=== PATIENT | male | born 1945 ===

== ENCOUNTER 2019-06-05 19:05 | Emergency (ER) | payer SELFPAY ==
[2019-06-05] MEDS ORDERED: NS 0.9% 1000 ML** 1,000 ML IV ONE (19:26)
[2019-06-05] MEDS ORDERED: Aspirin 81 mg CHEW TAB* 81 MG TAB.CHEW PO ONE ×2 (19:26→19:45)
[2019-06-05 19:28] VITALS: BP 154/77
--- NOTE | 2019-06-05 19:36 | UC ---
Cardiac HPI - HPI Summary HPI Summary: 73-year-old male comes in with chief complaint of right-sided chest pain. Started earlier today. Feels like a pressure. Also describes arrhythmias. French is the patient's second language and his son is interpreting for him which somewhat limits the interview. - History of Current Complaint Chief Complaint: UCChestPain Stated Complaint: HIGH BLOOD PRESSURE, CHEST DISCOMFORT Time Seen by Provider: 06/05/19 19:13 Pain Intensity: 4 - Allergy/Home Medications Allergies/Adverse Reactions: Allergies Allergy/AdvReac Type Severity Reaction Status Date / Time No Known Allergies Allergy Verified 06/05/19 19:29 Home Medications: Home Medications Aspirin [Adult Low Dose Aspirin EC] 100 mg PO 06/05/19 [History] Diazepam SYRINGE* [Valium SYRINGE*] 5 mg .SEE ORDER 06/05/19 [History] Furosemide [Lasix] 25 mg PO 06/05/19 [History] Olmesartan Medoxomil 40 mg PO 06/05/19 [History] Pantoprazole TAB * [Protonix TAB*] 40 mg PO DAILY 06/05/19 [History Confirmed ] Tamsulosin CAP* [Flomax CAP*] 0.4 mg PO DAILY 06/05/19 [History Confirmed ] PMH/Surg Hx/FS Hx/Imm Hx Previously Healthy: Yes Cardiovascular History: Hypertension GI/ History: Gastroesophageal Reflux - Surgical History Surgical History: None - Family History Known Family History: Positive: Non-Contributory - Social History Alcohol Use: Weekly Substance Use Type: None Smoking Status (MU): Never Smoked Tobacco Review of Systems All Other Systems Reviewed And Are Negative: Yes Constitutional: Positive: Other - SEE HPI Skin: Positive: Negative Eyes: Positive: Negative ENT: Positive: Negative Respiratory: Positive: Other - SEE HPI Cardiovascular: Positive: Chest Pain Gastrointestinal: Positive: Negative Genitourinary: Positive: Negative Motor: Positive: Negative Neurovascular: Positive: Negative Musculoskeletal: Positive: Negative Neurological: Positive: Negative Psychological: Positive: Negative Is Patient Immunocompromised?: No Physical Exam Triage Information Reviewed: Yes Appearance: No Pain Distress, Well-Nourished, Ill-Appearing - MILD Vital Signs: Initial Vital Signs Temp 99.2 F 06/05/19 19:13 Pulse 67 06/05/19 19:13 Resp 18 06/05/19 19:13 BP 154/77 06/05/19 19:13 Pulse Ox 97 06/05/19 19:13 Vital Signs Reviewed: Yes Eye Exam: Normal Eyes: Positive: Conjunctiva Clear Neck: Positive: Supple Respiratory: Positive: Lungs clear, Normal breath sounds, No respiratory distress Cardiovascular: Positive: RRR Abdomen Description: Positive: Nontender, Soft Musculoskeletal: Positive: Strength Intact, ROM Intact Neurological Exam: Normal Neurological: Positive: Alert, Muscle Tone Normal Psychological: Positive: Normal Response To Family, Age Appropriate Behavior Skin Exam: Normal Diagnostics - EKG Cardiac Rate: NL - AT 1914 Cardiac Rhythm: Sinus: Normal - 66BPM Ectopy: None ST Segment: Normal - Assessment/Plan Course Of Treatment: In clinic patient was given aspirin 3 and 24 g by mouth and IV and normal saline was started. He was transported to the emergency department by ambulance. - Clinical Impression Provider Diagnosis: Chest pain Discharge - Sign-Out/Discharge Documenting (check all that apply): Patient Departure All imaging exams completed and their final reports reviewed: No Studies - Discharge Plan Condition: Stable Disposition: TRANS HIGHER LVL OF CARE FAC Referrals: No Primary Care Phys,NOPCP [Primary Care Provider] - - Billing Disposition and Condition Condition: STABLE Disposition: Trans Higher Lvl of Care Fac
== END 2019-06-05 20:12 | disposition short-term general hospital (02) ==
LOC: UCEAST 19:05
DX: R07.9 Chest pain, unspecified (principal); I10 Essential (primary) hypertension; K21.9 Gastro-esophageal reflux disease without esophagitis; Z79.82 Long term (current) use of aspirin
CPT/HCPCS: 93005; 96360; 99203; G0463

== ENCOUNTER 2019-06-05 20:20 | Emergency (ER) | payer SELFPAY ==
[2019-06-05] MEDS ORDERED: Metoprolol Tartrate IV* 1 MG/ML 5 ML VIAL IV ONE (20:43)
--- NOTE | 2019-06-05 20:47 | ED ---
HPI Chest Pain - HPI Summary HPI Summary: This pt is a 73 y/o M brought in by ambulance to [facility] accompanied by his grandson with a CC of high blood pressure since 05/28/19 worsening since 06/05/19 at 1500. His grandson interpreted for the pt since he only speaks [place]. His grandson stated that at worse his BP was 166 after eating dinner today. He also states that the pt experienced R sided chest pressure during the episode but states that he currently does not have any pressure. His grandson stated no aggravating or alleviating symptoms. He denies any fevers, abdominal pain, N/V/D , SOB, headaches, and diaphoresis. His grandson stated that he has prescription BP and heart medications that he takes daily. He has a pertinent PMHx of a cardiac stress test 4 years ago and a Hx of high blood pressure. He is vising from [place] and arrived here on 05/16/19. He denies smoking tobacco or using illegal substances. He drinks every night. - History of Current Complaint Chief Complaint: EDChestPainROMI Time Seen by Provider: 06/05/19 20:30 Hx Obtained From: Family/Chronograph Operator - grandson, pt speaks only citizen of [place] Onset/Duration: Started Days Ago - 05/28/19, Still Present, Worse Since - 1700 today Time of Onset: 17:00 Timing: Constant Initial Severity: Mild Current Severity: None Pain Intensity: 0 Pain Scale Used: 0-10 Numeric Chest Pain Location: Right Anterior Chest Pain Radiates: No Character: Pressure/Squeezing Aggravating Factor(s): Nothing Alleviating Factor(s): Nothing Associated Signs and Symptoms: Positive: Chest Pain - described as pressure, Other: - hypertension. Negative: Headaches, Shortness of Breath, Fever, Diaphoresis, Nausea, Abdominal Pain, Vomiting - Allergy/Home Medications Allergies/Adverse Reactions: Allergies Allergy/AdvReac Type Severity Reaction Status Date / Time No Known Allergies Allergy Verified 06/05/19 20:41 PMH/Surg Hx/FS Hx/Imm Hx Previously Healthy: Yes Endocrine/Hematology History: Denies: Hx Diabetes Cardiovascular History: Reports: Hx Hypertension Respiratory History: Reports: Hx Asthma - Surgical History Surgical History: Yes Surgery Procedure, Year, and Place: Knee surgery, meniscus Infectious Disease History: No Infectious Disease History: Reports: Traveled Outside the [place] in Last 30 Days - visiting from [place] since 05/16/19 - Family History Known Family History: Positive: Non-Contributory - Social History Lives: With Family Alcohol Use: Weekly Hx Substance Use: No Substance Use Type: Reports: None Hx Tobacco Use: No Smoking Status (MU): Never Smoked Tobacco Review of Systems Negative: Fever, Skin Diaphoresis Positive: Chest Pain - pressure, Other - HTN Negative: Shortness Of Breath Negative: Abdominal Pain, Vomiting, Diarrhea, Nausea Negative: Headache All Other Systems Reviewed And Are Negative: Yes Physical Exam - Summary Physical Exam Summary: VITAL SIGNS: Reviewed. GENERAL: Patient is a well-developed and nourished male who is lying comfortable in the stretcher. Patient is not in any acute respiratory distress. HEAD AND FACE: No signs of trauma. No ecchymosis, hematomas or skull depressions. No sinus tenderness. EYES: PERRLA, EOMI x 2, No injected conjunctiva, no nystagmus. EARS: Hearing grossly intact. Ear canals and tympanic membranes are within normal limits. MOUTH: Oropharynx within normal limits. NECK: Supple, trachea is midline, no adenopathy, no JVD, no carotid bruit, no c- spine tenderness, neck with full ROM CHEST: Symmetric, no tenderness at palpation LUNGS: Clear to auscultation bilaterally. No wheezing or crackles. CVS: Regular rate and rhythm, S1 and S2 present, no murmurs or gallops appreciated. ABDOMEN: Soft, non-tender. No signs of distention. No rebound no guarding, and no masses palpated. Bowel sounds are normal. EXTREMITIES: FROM in all major joints, no edema, no cyanosis or clubbing. NEURO: Alert and oriented x 3. No acute neurological deficits. Speech is normal and follows commands. SKIN: Dry and warm Triage Information Reviewed: Yes Vital Signs On Initial Exam: Initial Vitals Temp Pulse Resp BP Pulse Ox 97.5 F 62 16 162/64 98 06/05/19 20:22 06/05/19 20:22 06/05/19 20:22 06/05/19 20:22 06/05/19 20:22 Vital Signs Reviewed: Yes Diagnostics - Vital Signs Vital Signs Temp Pulse Resp BP Pulse Ox 06/05/19 20:22 97.5 F 62 16 162/64 98 - Laboratory Result Diagrams: 06/05/19 21:06 06/05/19 21:06 Lab Statement: Any lab studies that have been ordered have been reviewed, and results considered in the medical decision making process. - EKG 2022 Cardiac Rate: NL - 62 BPM EKG Rhythm: Sinus Rhythm Summary of EKG Findings: Sinus rhythm of 62 BPM with a 1st degree AV block, L axis deviation and Q leads are anteroseptal. Interpreted by Dr. Carvajal at 2022. Chest Pain Course/Dx - Course Course Of Treatment: This pt is a 73 y/o M presenting to [facility] brought in by an ambulance for high blood pressure and R anterior chest pain described as pressure. His PE found no acute findings. His EKG found that he had a Sinus rhythm 62 BPM with a 1st degree AV block, L axis deviation and Q leads are anteroseptal. His lab results found no abnormalities and the pt will be discharged home with a Dx of atypical chest pain and be instructed to follow up with his PCP when he returns home and receive a cardiac stress test. - Diagnoses Provider Diagnoses: Atypical chest pain Discharge - Sign-Out/Discharge Documenting (check all that apply): Patient Departure - discharge Patient Received Moderate/Deep Sedation with Procedure: No - Discharge Plan Condition: Stable Disposition: HOME Patient Education Materials: Chest Pain (ED) Referrals: [facility] [Outside] Additional Instructions: Please return to the emergency department for any new or worsening symptoms. Also please receive a cardiac stress test ether by scheduling through [facility] or upon your arrival home to [place] by your primary care provider. - Attestation Statements Document Initiated by Scribe: Yes Documenting Scribe: Terrence Chahal Provider For Whom Scribe is Documenting (Include Credential): Meseret Carvajal MD Scribe Attestation: Terrence Gomez, scribed for Meseret Carvajal MD on 06/06/19 at 0013. Status of Scribe Document: Ready
[2019-06-05 21:14] LABS: ABS Basophils 0.1 10^3/ul (0-0.2); ABS Eosinophils 0.4 10^3/ul (0-0.6); ABS Lymphocytes 1.6 10^3/ul (1.0-4.8); ABS Monocytes 0.5 10^3/ul (0-0.8); ABS Neutrophils 3.6 10^3/ul (1.5-7.7); Eosinophil % 6.2 %; Hematocrit 41 % (42-52); Hemoglobin 14.5 g/dL (14.0-18.0); Lymphocyte % 26.4 %; Mean Corpuscular HGB Conc 35 g/dL (31-36); Mean Corpuscular Hemoglobin 31 pg (27-31); Mean Corpuscular Volume 87 fL (80-94); Mean Platelet Volume 8.2 fL (7.4-10.4); Nucleated Red Blood Cells % 0.1; Platelet Count 200 10^3/uL (150-450); Red Blood Count 4.73 10^6 /uL (4.18-5.48); Red Cell Distribution Width 13 % (10-15); White Blood Count 6.1 10^3/uL (3.5-10.8)
[2019-06-05 21:27] LABS: Activated Partial Thrombo Time 31.6 seconds (26.0-38.0); INR 1.08 (0.82-1.09)
[2019-06-05 21:32] LABS: Albumin 4.2 g/dL (3.2-5.2); Albumin/Globulin Ratio 1.7 (1-3); BUN/Creatinine Ratio 9.1 (8-20); Calcium 9.4 mg/dL (8.6-10.3); EGFR African American 71.3 (>60); EGFR Non-African American 58.9 (>60); Globulin 2.5 g/dL (2-4); Magnesium 1.8 mg/dL (1.9-2.7); Potassium 3.7 mmol/L (3.5-5.0); Total Bilirubin 0.6 mg/dL (0.2-1.0); Total Protein 6.7 g/dL (6.4-8.9)
[2019-06-06 00:46] VITALS: BP 146/78
== END 2019-06-06 00:45 | disposition home or self-care (01) ==
LOC: ED 20:20
DX: R07.89 Other chest pain (principal); I10 Essential (primary) hypertension
CPT/HCPCS: 36415; 80053; 83735; 84484; 85025; 85610; 85730; 96374; 99282; J3490